=== PATIENT | male | born 1965 | race Caucasian/White ===

== ENCOUNTER 2019-03-23 22:08 | Inpatient (IN) | payer BC ==
[~2019-03-23] VITALS: Ht 190.5 cm; Wt 138.7 kg
[2019-03-23 22:21] VITALS: BP 98/59; PULSE 94; TEMP 97.8
[2019-03-23] MEDS ORDERED: PRINIVIL40 MG PO (22:43)
[2019-03-23] MEDS ORDERED: WELLBUTRIN XL300 M1 PO (22:44)
[2019-03-23] MEDS ORDERED: CELEXA 20MG20 MG/TAB PO (22:44)
--- NOTE | 2019-03-23 23:06 | NUR ---
PT ARRIVED FROM [facility] AMBULATED, NO FAMILY BY SIDE. PT WORKING ON A JOB IN [place], [place]. PT GOT DIZZY AND WAS NAUSEAD. PT WENT TO [place] AND FOUND HIS CREATININE WAS ELEVATED. PT TRANSFERED HERE. PT DROVE HIS OWN PRIVE VEHICLE. PT A/O X4. PT ADVISES DOES NOT FEEL DIZZY ANYMORE AND IS NOT NAUSEAD. PT HAS HIS OWN BPAP MACHINE AT BEDSIDE. NO NEEDS AT THIS TIME, CALL LIGHT WITHIN REACH.
--- NOTE | 2019-03-24 01:03 | NUR ---
LR started at 125/hr started. Patient resting in bed. Denies pain or further needs at this time. Call light within reach.
[2019-03-24 01:40] VITALS: BP 118/74; PULSE 78; TEMP 98
[2019-03-24 03:40] LABS: PH 5 (5-8); SQUAMOUS EPITHELIAL None Seen /hpf; URINE APPEARANCE Clear; URINE BACTERIA None Seen /hpf; URINE BILIRUBIN Negative (NEGATIVE); URINE BLOOD Negative (NEGATIVE); URINE COLOR Yellow; URINE GLUCOSE Negative (NEGATIVE); URINE KETONE Negative (NEGATIVE); URINE LEUKOCYTE ESTERASE Negative (NEGATIVE); URINE NITRATE Negative (NEGATIVE); URINE PROTEIN(semi-quant) Negative (NEGATIVE); URINE RBC 0-2 /hpf; URINE UROBILINOGEN Negative (NEGATIVE)
[2019-03-24 03:41] LABS: COLLECTION METHOD CLEAN CATCH
[2019-03-24 04:05] VITALS: BP 122/60; PULSE 70; TEMP 98
--- NOTE | 2019-03-24 05:52 | NUR ---
Patient had uneventful night. UA collected. IV LR started. Resting in bed. Call light within reach.
[2019-03-24 06:19] LABS: BASO % 0.5 % (0.0-2.0); EOS # 0.2 (0.0-0.7); EOS % 2.3 % (0-4.0); GRAN # 4.1 (1.4-6.5); GRAN % 48.8 % (42.2-75.2); HEMATOCRIT 41.4 % (42.0-52.0); HEMOGLOBIN 13.4 g/dl (13.5-18.0); LYMPH # 3.1 (1.2-3.4); LYMPH % 37.2 % (20.0-51.0); MEAN CELL VOLUME 90 fl (80.0-100.0); MEAN CORPUSCULAR HEMOGLOBIN 29 pg (27.0-31.0); MEAN CORPUSCULAR HGB CONC 32 g/dl (33.0-37.0); MEAN PLATELET VOLUME 10.8 fl (7.4-10.4); MONO # 0.9 (0.1-0.6); MONO % 10.4 % (1.7-9.3); PLATELET COUNT 172 K/mm3 (130-400); RED BLOOD COUNT 4.62 M/mm3 (4.20-5.60); REDCELL DISTRIBUTION WIDTH-CV 13.7 % (11.5-14.5)
[2019-03-24 06:29] LABS: CALCIUM 8.4 mg/dL (8.4-10.2); CREATININE, serum 1.56 (0.66-1.25)
--- NOTE | 2019-03-24 06:42 | NUR ---
Report given to BRICE Cutler.
[2019-03-24 06:46] VITALS: BP 108/57; PULSE 68; TEMP 98.2
[2019-03-24 06:49] LABS: URIC ACID 8.4 mg/dL (3.5-8.5)
--- NOTE | 2019-03-24 09:11 | NUR ---
Initial visit; Patient thanked Labor Commissioner for looking in on him. He has a supportive family member and feels good about his care at our hospital.
[2019-03-24 11:19] VITALS: BP 130/73; PULSE 68; TEMP 97.6
--- NOTE | 2019-03-24 11:41 | NUR ---
LAZARO met with the patient to discuss discharge plan. The patient lives alone in [place]. He states that he is in [place] for work. His , Jose Angel Plasencia, lives in [place] and his brother (Javier) lives in [place]. He reports independence with ADLs and does not have any assistive devices. He does have a bipap. The patient's primary care provider is Bhavana Keller, Nurse Practitioner, at [place] and he receives his medications at the [facility] in [place]. He reports no difficulties obtaining his meds. The patient does not have advanced directives, but he was interested in obtaining a form for DPOA-HC. LAZARO provided. He states that his brother, Javier Plasencia (ph#[phone]), would be his emergency contact. The patient plans to either return back to work in [place] or will go back home to [place] upon discharge. No other identified needs at this time.
[2019-03-24 15:56] VITALS: BP 109/64; PULSE 74; TEMP 97.9
--- NOTE | 2019-03-24 18:26 | NUR ---
PT HAD UNEVENTFUL DAY. NS INFUSING WITHOUT ISSUE, SWITCHED FROM LR THIS AM. NO ISSUES OR CONCERNS VOICED.
[2019-03-24 20:28] VITALS: BP 143/58; PULSE 87; TEMP 97.8
--- NOTE | 2019-03-24 21:51 | NUR ---
PT IN BED WITH HOB AT 30 DEGREE ANGLE. HAS BIPAP MACHINE ON AND READY TO GO TO SLEEP. PT DENIES PAIN OR DISCOMFORT AND NO N/V AT THIS TIME. NO NEEDS CALL LIGHT WITHIN REACH.
[2019-03-25 01:15] VITALS: BP 130/73; PULSE 75; TEMP 98.6
[2019-03-25 03:25] VITALS: BP 136/73; PULSE 66; TEMP 98.1
[2019-03-25 06:12] LABS: BASO % 0.4 % (0.0-2.0); EOS # 0.2 (0.0-0.7); EOS % 2.8 % (0-4.0); GRAN # 3.4 (1.4-6.5); GRAN % 51.3 % (42.2-75.2); HEMATOCRIT 39.5 % (42.0-52.0); HEMOGLOBIN 12.6 g/dl (13.5-18.0); LYMPH # 2.3 (1.2-3.4); LYMPH % 34.5 % (20.0-51.0); MEAN CELL VOLUME 91 fl (80.0-100.0); MEAN CORPUSCULAR HEMOGLOBIN 29 pg (27.0-31.0); MEAN CORPUSCULAR HGB CONC 32 g/dl (33.0-37.0); MONO # 0.7 (0.1-0.6); MONO % 10.4 % (1.7-9.3); PLATELET COUNT 160 K/mm3 (130-400); RED BLOOD COUNT 4.34 M/mm3 (4.20-5.60); REDCELL DISTRIBUTION WIDTH-CV 13.3 % (11.5-14.5)
[2019-03-25 06:23] LABS: ALBUMIN 3.5 gm/dL (3.5-5.0); BILIRUBIN,TOTAL 0.3 mg/dL (0.0-1.0); CALCIUM 8.6 mg/dL (8.4-10.2); CREATININE, serum 0.83 (0.66-1.25); POTASSIUM 4.3 mmol/L (3.4-5.0); TOTAL PROTEIN 6.3 gm/dL (6.4-8.2)
--- NOTE | 2019-03-25 06:40 | NUR ---
UNEVENTFUL NIGHT, PT DENIED PAIN AND DISCOMFORT AND SLEPT WITH BIPAP ON DURING NIGHT. PT EASILY AWAKENS AND THEN WENT BACK TO SLEEP. NO NEEDS, CALL LIGHT WITHIN REACH.
[2019-03-25 08:37] VITALS: BP 146/76; PULSE 69; TEMP 97.6
[2019-03-25] MEDS ORDERED: ZESTRIL 10MG10 MG PO (08:52)
--- NOTE | 2019-03-25 09:50 | NUR ---
Pt alert and oriented. Pt stable this am and feeling better per pt. Pt denies pain or SOB. AM assessment completed. Pt has orders to discharge. Pt IV patent no redness or infiltration. Pt getting dressed now and has call light in reach.
--- NOTE | 2019-03-25 10:00 | NUR ---
Pt given discharge instructions and reviewed medication changes. Pt IV's discontinued and no bleeding. Pt escorted to vehicle by aide without incident. Pt has all belongings.
== END 2019-03-25 10:00 | disposition home or self-care (01) | DRG 683 ==
LOC: MEDICAL 22:08
PROVIDERS: Physician Assistant
DX: N17.9 Acute kidney failure, unspecified (principal); E87.2 Acidosis; G47.33 Obstructive sleep apnea (adult) (pediatric); I10 Essential (primary) hypertension; Z87.891 Personal history of nicotine dependence
CPT/HCPCS: OP; 99232-AI; 99239; J7030; J7120